=== PATIENT | male | born 1990 | race Caucasian/White ===

== ENCOUNTER 2022-10-22 16:25 | Emergency (ER) | payer OTHER ==
[~2022-10-22] VITALS: Ht 185.4 cm; Wt 100.0 kg
[2022-10-22 16:29] VITALS: BP 125/78
[2022-10-22] MEDS ORDERED: SODIUM CHLORIDE 0.9% 1,000 ML IV ONE (17:15)
[2022-10-22] MEDS ORDERED: KETOROLAC 15MG/ML VIAL IV ONE (17:15)
[2022-10-22] MEDS ORDERED: ONDANSETRON HCL 4MG/2ML INJ IV ONE (17:15)
[2022-10-22 17:49] LABS: HEMATOCRIT. 48.7 % (42.0-52.0); HEMOGLOBIN. 16.7 g/dL (14.0-18.0); MEAN CORPUSCULAR HEMOGLOBIN 28.9 pg (28.0-32.0); MEAN CORPUSCULAR VOLUME 84.6 fL (80.0-94.0); PLATELET 195 x1000/uL (130-400); RED BLOOD CELL COUNT 5.76 mill/uL (4.7-6.1); RED CELL DISTRIBUTION WIDTH 12.8 % (11.6-14.6)
[2022-10-22 18:03] LABS: CHLORIDE 106 mEq/L (98-107)
[2022-10-22 18:10] LABS: ETHANOL BLOOD 131 mg/dL
[2022-10-22 18:18] LABS: PLATELET ESTIMATE NORMAL
[2022-10-22] MEDS ORDERED: KETOROLAC 15MG/ML VIAL IV NR (19:00)
[2022-10-22] MEDS ORDERED: ONDANSETRON HCL 4MG/2ML INJ IV NR (19:00)
[2022-10-22] MEDS ORDERED: CHLORDIAZEPOXIDE 25MG CAPSULE PO ONE (20:00)
== END 2022-10-22 20:54 | disposition home or self-care (01) ==
LOC: ER 16:28
DX: F10.129 Alcohol abuse with intoxication, unspecified (principal); Y90.6 Blood alcohol level of 120-199 mg/100 ml
CPT/HCPCS: 36415; 80053; 80320; 83690; 85025; 96361; 96374; 96375; 99284; J1885; J2405; J7030; Z7610; G0480